=== PATIENT | male | born 1950 | race Hispanic/Latino ===

== ENCOUNTER 2024-12-13 15:27 | Inpatient (IN) | payer MEDICARE ==
[2024-12-13] VITALS (7 sets, daily range): BP systolic 130–143; BP diastolic 66–69; PULSE 64–70; RESP 16–18; TEMP 98.2–98.9; O2SAT 98–100
[~2024-12-13] VITALS: Ht 172.7 cm; Wt 83.0 kg
[2024-12-13 16:29] LABS: BASOPHILS % 0.5 % (0.0-1.0); EOSINOPHILS # (AUTO) 0.2 (0.0-0.4); EOSINOPHILS % 3.4 % (0.0-6.0); HEMATOCRIT 19.6 % (38.2-49.6); LYMPHOCYTES # (AUTO) 0.7 (1.0-3.2); LYMPHOCYTES % 16.5 % (18.0-39.1); MEAN CORPUSCULAR HEMOGLOBIN 40.6 pg (28-32); MEAN CORPUSCULAR HGB CONC 33.2 g/dL (31-35); MEAN CORPUSCULAR VOLUME 122.5 fL (81-99); MONOCYTES # (AUTO) 0.4 (0.2-0.8); MONOCYTES % 8.1 % (4.4-11.3); NEUTROPHILS # (AUTO) 3.1 (2.1-6.9); NEUTROPHILS % 69.7 % (38.7-80.0); PLATELET COUNT 317 x10e3/uL (140-360); RED CELL DISTRIBUTION WIDTH 14.9 % (11.7-14.4); WHITE BLOOD COUNT 4.43 x10e3/uL (4.8-10.8)
[2024-12-13 16:32] LABS: HEMOGLOBIN 6.5 g/dL (14.0-18.0)
[2024-12-13] MEDS ORDERED: GLIPIZIDE10 MG PO (21:59)
[2024-12-13] MEDS ORDERED: LISINOPRIL10 MG PO (21:59)
[2024-12-13] MEDS ORDERED: ATORVASTATIN CA20 MG PO (21:59)
[2024-12-13] MEDS ORDERED: GLYXAMBI 25 MG1 EACH PO (21:59)
[2024-12-13] MEDS ORDERED: LABETALOL HCL100 MG PO (21:59)
[2024-12-14] VITALS (11 sets, daily range): BP systolic 121–155; BP diastolic 64–75; PULSE 68–77; RESP 16–20; TEMP 97.3–98.9; O2SAT 96–100
[2024-12-14 01:51] LABS: FERRITIN 701.17 ng/mL (21.81-274.66)
[2024-12-14] MEDS ORDERED: BENZONATATE 100 MG CAP PO PRN (02:15)
[2024-12-14] MEDS ORDERED: MELATONIN 5 MG TABLET PO PRN (02:15)
[2024-12-14] MEDS ORDERED: ALBUTEROL/IPRATROPIUM 3 ML NEB NEB PRN (02:15)
[2024-12-14] MEDS ORDERED: POTASSIUM CHLORIDE 20 MEQ TAB CR PO PRN (02:15)
[2024-12-14] MEDS ORDERED: HYDRALAZINE HCL 20 MG/ML VIAL IV PRN (02:15)
[2024-12-14] MEDS ORDERED: DIPHENHYDRAMINE HCL 25 MG CAP PO PRN (02:15)
[2024-12-14] MEDS ORDERED: HYDROCODONE/APAP 5MG-325MG TAB PO PRN (02:15)
[2024-12-14] MEDS ORDERED: ONDANSETRON HCL INJ 2MG/ML 2ML 2 MG/ML VIAL IV PRN (02:15)
[2024-12-14] MEDS ORDERED: SIMETHICONE 80 MG CHEW PO PRN (02:15)
[2024-12-14] MEDS ORDERED: ACETAMINOPHEN 325 MG TAB PO PRN (02:15)
[2024-12-14] MEDS ORDERED: DOCUSATE SODIUM 100 MG CAP PO PRN (02:15)
[2024-12-14] MEDS ORDERED: DEXTROSE 50% SYRINGE 50 ML IV PRN ×2 (02:15)
[2024-12-14 05:12] LABS: BASOPHILS % 0.7 % (0.0-1.0); EOSINOPHILS # (AUTO) 0.2 (0.0-0.4); EOSINOPHILS % 4.5 % (0.0-6.0); LYMPHOCYTES % 22.2 % (18.0-39.1); MEAN CORPUSCULAR HEMOGLOBIN 39.7 pg (28-32); MEAN CORPUSCULAR HGB CONC 32.1 g/dL (31-35); MEAN CORPUSCULAR VOLUME 123.8 fL (81-99); MONOCYTES # (AUTO) 0.4 (0.2-0.8); MONOCYTES % 9.5 % (4.4-11.3); NEUTROPHILS # (AUTO) 2.7 (2.1-6.9); NEUTROPHILS % 61.7 % (38.7-80.0); PLATELET COUNT 267 x10e3/uL (140-360); RED BLOOD COUNT 1.51 x10e6/uL (4.3-5.7); RED CELL DISTRIBUTION WIDTH 14.9 % (11.7-14.4); WHITE BLOOD COUNT 4.42 x10e3/uL (4.8-10.8)
[2024-12-14 05:45] LABS: ANION GAP 12.6 mmol/L (8-16); CALCIUM 8.5 mg/dL (8.4-10.2); CREATININE, SERUM 0.79 mg/dL (0.72-1.25); POTASSIUM 3.6 mmol/L (3.5-5.1)
[2024-12-14 05:45] LABS: HEMATOCRIT 18.7 % (38.2-49.6)
[2024-12-14 06:12] LABS: CHOL/HDL RATIO 2.6 (3.9-4.7)
[2024-12-14 06:33] LABS: FERRITIN 794.13 ng/mL (21.81-274.66); THYROID STIMULATING HORMONE 4.027 uIU/mL (0.350-4.940)
[2024-12-14] MEDS: INSULIN LISPRO 100 UNIT/1 ML 3ML VIAL SQ SCH (07:30)
[2024-12-14] MEDS: PANTOPRAZOLE SOD 40 MG TABEC PO SCH (08:59)
[2024-12-14] MEDS: ATORVASTATIN 20 MG TAB PO SCH (08:59)
[2024-12-14] MEDS: IMMU GLOBULIN,GAMMA (IGG) 200 ML IV SCH (11:32)
[2024-12-14] MEDS: DEXAMETHASONE SOD PHOS INJ 4 MG/ML SDV IV SCH (11:37)
[2024-12-14] MEDS: DIPHENHYDRAMINE HCL INJ 50 MG/ML VIAL IV ONE (17:58)
[2024-12-14] MEDS: ACETAMINOPHEN 325 MG TAB PO ONE (17:59)
[2024-12-14] MEDS: INSULIN GLARGINE 100 UNITS/ML VIAL SQ SCH (21:05)
[2024-12-15] VITALS (9 sets, daily range): BP systolic 127–152; BP diastolic 65–88; PULSE 65–82; RESP 18–20; TEMP 97.7–98.3; O2SAT 97–100
[2024-12-15 05:53] LABS: BILIRUBIN,DIRECT 0.5 mg/dL (0.0-0.5); BILIRUBIN,TOTAL 2.5 mg/dL (0.2-1.2); TOTAL PROTEIN 7.5 g/dL (6.5-8.1)
[2024-12-15 06:36] LABS: HEMATOCRIT 26.6 % (38.2-49.6); HEMOGLOBIN 8.6 g/dL (14.0-18.0)
[2024-12-15] MEDS: SODIUM CHLORIDE 0.9% 250ML 250 ML IV ONE (07:26)
[2024-12-15] MEDS: SODIUM CHLORIDE 0.9% 250ML 250 ML ONE ×2 (07:26)
[2024-12-15] MEDS ORDERED: DEXAMETHASONE SOD PHOS INJ 4 MG/ML SDV IV SCH (09:00)
[2024-12-15] MEDS ORDERED: IMMU GLOBULIN,GAMMA (IGG) 200 ML IV SCH (09:00)
[2024-12-15] MEDS: FOLIC ACID 1 MG TAB PO SCH (09:11)
[2024-12-15] MEDS: DEXAMETHASONE SOD PHOS 10 MG/1 ML VIAL IV SCH (09:25)
[2024-12-16 04:00] VITALS: BP 141/72; PULSE 67; RESP 20; TEMP 97.8; O2SAT 100
[2024-12-16 05:44] LABS: ANION GAP 14.2 mmol/L (8-16); CREATININE, SERUM 0.82 mg/dL (0.72-1.25); POTASSIUM 4.2 mmol/L (3.5-5.1)
[2024-12-16 05:45] LABS: CALCIUM 8.2 mg/dL (8.4-10.2)
[2024-12-16 05:49] LABS: HEMATOCRIT 26.5 % (38.2-49.6); HEMOGLOBIN 8.4 g/dL (14.0-18.0); MEAN CORPUSCULAR HEMOGLOBIN 36.2 pg (28-32); MEAN CORPUSCULAR HGB CONC 31.7 g/dL (31-35); MEAN CORPUSCULAR VOLUME 114.2 fL (81-99); RED BLOOD COUNT 2.32 x10e6/uL (4.3-5.7); WHITE BLOOD COUNT 7.79 x10e3/uL (4.8-10.8)
[2024-12-16 05:50] LABS: EOSINOPHILS % 0.1 % (0.0-6.0); LYMPHOCYTES # (AUTO) 0.8 (1.0-3.2); LYMPHOCYTES % 10.4 % (18.0-39.1); MONOCYTES # (AUTO) 0.6 (0.2-0.8); MONOCYTES % 7.7 % (4.4-11.3); NEUTROPHILS # (AUTO) 6.3 (2.1-6.9); NEUTROPHILS % 81.4 % (38.7-80.0); PLATELET COUNT 250 x10e3/uL (140-360); RED CELL DISTRIBUTION WIDTH 18.2 % (11.7-14.4)
[2024-12-16 06:50] VITALS: PULSE 78; RESP 20; O2SAT 98
[2024-12-16 08:18] VITALS: BP 143/86; PULSE 73; RESP 18; TEMP 98.6; O2SAT 100
[2024-12-16 09:00] VITALS: BP 143/86; PULSE 73; RESP 18; TEMP 98.6; O2SAT 100
[2024-12-16] MEDS: PREDNISONE 20 MG TAB PO SCH (10:11)
[2024-12-16] MEDS: LIDOCAINE 4% PATCH TP PRN (10:12)
[2024-12-16 12:04] VITALS: BP 154/54; PULSE 67; RESP 20; TEMP 98.6; O2SAT 100
[2024-12-16] MEDS ORDERED: PREDNISONE20 MG PO (14:12)
[2024-12-16] MEDS ORDERED: SODIUM BICARBO650 MG PO (14:17)
[2024-12-16] MEDS: SODIUM BICARBONATE 650 MG TAB PO ONE (16:36)
[2024-12-17 14:16] LABS: HAPTOGLOBIN <10 mg/dL (34-355)
[2024-12-18 05:09] LABS: LD1 ISOENZYMES 33 % (17-32); LD2 ISOENZYMES 40 % (25-40); LD3 ISOENZYMES 15 % (17-27); LD4 ISOENZYMES 6 % (5-13)
[2024-12-18 06:32] LABS: LD5 ISOENZYMES 6 % (4-20)
== END 2024-12-16 16:45 | disposition home or self-care (01) | DRG 809 ==
LOC: ER 15:35 → ERHOLD 16:56 → MED/SURG2 18:17
PROVIDERS: ADMIT Internal Medicine; ATTEND Internal Medicine
PROC: 30233N1 Transfusion of Nonautologous Red Blood Cells into Peripheral Vein, Percutaneous Approach (ICD-10-PCS; principal; 2024-12-14)
PROC: 30233N1 Transfusion of Nonautologous Red Blood Cells into Peripheral Vein, Percutaneous Approach (ICD-10-PCS; 2024-12-14)
DX: D59.10 Autoimmune hemolytic anemia, unspecified (principal); E87.20 Acidosis, unspecified; D53.9 Nutritional anemia, unspecified; I10 Essential (primary) hypertension; E78.5 Hyperlipidemia, unspecified; E11.9 Type 2 diabetes mellitus without complications; Z79.84 Long term (current) use of oral hypoglycemic drugs; Z79.899 Other long term (current) drug therapy
CPT/HCPCS: 36415; 80048; 80061; 80076; 82607; 82728; 82746; 82948; 83010; 83036; 83540; 83615; 83625; 83735; 84443; 84466; 85014; 85018; 85025; 85045; 86850; 86870; 86880; 86900; 86905; 86920; 86922; 94799; 96372; 99001; 99284; J1100; J1200; J1561; J1815; J2405; J2470; J7050; J7512; P9016